=== PATIENT | female | born 1990 | race Caucasian/White ===

== ENCOUNTER 2018-02-17 06:29 | Emergency (ER) | payer MEDICAID, OTHER ==
[~2018-02-17] VITALS: Ht 160 cm; Wt 77.0 kg
[2018-02-17 06:56] LABS: URINE HCG NEGATIVE (NEG)
[2018-02-17 07:01] LABS: GLUCOSE, URINE Negative (Neg); KETONES,URINE Negative (Neg); LEUKOCYTE ESTERASE ,URINE Large (Neg); NITRITES, URINE Negative (Neg); OCCULT BLOOD,URINE Large (Neg); PH,URINE 6.5 (4.8-8.0); PROTEIN,URINE Negative (Neg); UA COLLECTION TYPE CLN CATCH MIDSTREAM; UROBILINOGEN,URINE 0.2 E.U/dL (0.2-1.0)
[2018-02-17 07:02] LABS: CLARITY,URINE SLIGHTLY CLOUDY (Clear); COLOR,URINE STRAW (Yellow)
[2018-02-17] MEDS ORDERED: phenazopyridine 100mg tablet PO ONE (07:05)
[2018-02-17] MEDS ORDERED: acetaminophen 325mg tablet PO ONE (07:05)
[2018-02-17 07:08] LABS: BACTERIA,URINE 1+ /HPF (Neg); MUCUS STRANDS NONE SEEN /LPF (Neg); SQUAMOUS EPITHELIAL CELL,UR FEW /LPF (FEW); WBC CLUMPS,URINE MODERATE /HPF (NEGATIVE); WBC,URINE 50-100 /HPF (0-4)
[2018-02-17] MEDS ORDERED: CefTRIAXone 1000mg IM Kit (w/lidocaine diluent) IM ONE (07:20)
[2018-02-17] MEDS ORDERED: ciprofloxacin 250mg tablet PO ONE (07:20)
[2018-02-17] MEDS ORDERED: PHEN-716 PO (07:23)
[2018-02-17] MEDS ORDERED: CIPR-259 PO (07:23)
[2018-02-17 08:05] VITALS: BP 134/79
== END 2018-02-17 08:06 | disposition home or self-care (01) ==
LOC: ER 06:30
DX: N39.0 Urinary tract infection, site not specified (principal); J45.909 Unspecified asthma, uncomplicated
CPT/HCPCS: 81001; 81025; 87088; 96372; 99285; J0696; 87077; 87186

== ENCOUNTER 2018-11-16 17:49 | Emergency (ER) | payer MEDICAID ==
[~2018-11-16] VITALS: Ht 157.5 cm; Wt 88.6 kg
[~2018-11-16 17:49] MED LIST: METH500T PO; PHEN-716 PO
[2018-11-16 18:29] VITALS: BP 122/78
--- NOTE | 2018-11-16 19:26 | NUR ---
pt amb with slow steady gait to hallway
[2018-11-16] MEDS ORDERED: CYCL-1 PO (19:29)
== END 2018-11-16 19:41 | disposition home or self-care (01) ==
LOC: ER 17:50
DX: S39.012A Strain of muscle, fascia and tendon of lower back, initial encounter (principal); J45.909 Unspecified asthma, uncomplicated; M19.90 Unspecified osteoarthritis, unspecified site; Z79.899 Other long term (current) drug therapy; X58.XXXA Exposure to other specified factors, initial encounter; Y93.89 Activity, other specified; Y92.89 Other specified places as the place of occurrence of the external cause; Y99.8 Other external cause status
CPT/HCPCS: 99283

== ENCOUNTER 2019-02-13 09:46 | Emergency (ER) | payer MEDICAID ==
[~2019-02-13] VITALS: Ht 160 cm; Wt 88.0 kg
[~2019-02-13 09:46] MED LIST changes: +CYCL-1 PO
[2019-02-13] MEDS ORDERED: normal saline 1000ML IV soln IVB ONE (10:40)
[2019-02-13] MEDS ORDERED: metoclopramide 5 mg/ml inj IV ONE (10:40)
[2019-02-13] MEDS ORDERED: LORazepam 2 mg/ml vial IV ONE (10:40)
[2019-02-13] MEDS ORDERED: dexamethasone sod phosphate 10mg/ml inj IV STA (10:40)
[2019-02-13] MEDS ORDERED: ketorolac trometh. 30mg/ml inj. IV ONE (11:35)
[2019-02-13 12:07] VITALS: BP 110/67
== END 2019-02-13 12:08 | disposition home or self-care (01) ==
LOC: ER 09:46 → EDBD 09:46 → ER 12:08
DX: G43.919 Migraine, unspecified, intractable, without status migrainosus (principal); J45.909 Unspecified asthma, uncomplicated; M19.90 Unspecified osteoarthritis, unspecified site
CPT/HCPCS: 70450; 96361; 96374; 96375; 99284; J1100; J1885; J2060; J2765; J7030

== ENCOUNTER 2020-01-06 10:45 | Emergency (ER) | payer MEDICAID ==
[~2020-01-06] VITALS: Ht 157.5 cm; Wt 88.0 kg
[2020-01-06 11:04] VITALS: BP 137/90
[2020-01-06] MEDS ORDERED: ERYT1OIN6 LEFTEYE (11:19)
== END 2020-01-06 11:38 | disposition home or self-care (01) ==
LOC: ER 10:45
DX: H10.9 Unspecified conjunctivitis (principal); J45.909 Unspecified asthma, uncomplicated; M19.90 Unspecified osteoarthritis, unspecified site
CPT/HCPCS: 99283

== ENCOUNTER 2020-04-21 17:38 | Emergency (ER) | payer MEDICAID ==
[~2020-04-21] VITALS: Ht 157.5 cm; Wt 100.0 kg
[2020-04-21] MEDS ORDERED: IBUP-1984 PO (18:24)
[2020-04-21] MEDS ORDERED: ondansetron 4mg rapidly disintigrating tab PO ONE (18:25)
[2020-04-21] MEDS ORDERED: HYDROcodone/acetaminophen 5mg/325mg tablet PO ONE (18:25)
[2020-04-21 18:28] VITALS: BP 133/80
--- NOTE | 2020-04-21 18:42 | NUR ---
blake guevara talkling with pt about dc. reports no fracture. pt to be given boot and crutches. given norco and zofran prior to dc. pts mother to pick her up.
== END 2020-04-21 18:48 | disposition home or self-care (01) ==
LOC: ER 17:38
DX: S93.491A Sprain of other ligament of right ankle, initial encounter (principal); J45.909 Unspecified asthma, uncomplicated; M19.90 Unspecified osteoarthritis, unspecified site; Z72.89 Other problems related to lifestyle; Z91.040 Latex allergy status; Z79.899 Other long term (current) drug therapy; X50.1XXA Overexertion from prolonged static or awkward postures, initial encounter; Y93.89 Activity, other specified; Y92.89 Other specified places as the place of occurrence of the external cause; Y99.8 Other external cause status
CPT/HCPCS: 73610; 73630; 99284

== ENCOUNTER 2021-06-23 14:05 | Emergency (ER) | payer MEDICAID ==
[~2021-06-23] VITALS: Ht 160 cm; Wt 82.0 kg
[2021-06-23 14:10] VITALS: BP 139/85
[2021-06-23 14:32] LABS: CLARITY,URINE CLOUDY (Clear); COLOR,URINE YELLOW (Yellow); GLUCOSE, URINE NEGATIVE (Neg); KETONES,URINE NEGATIVE (Neg); LEUKOCYTE ESTERASE ,URINE TRACE (Neg); NITRITES, URINE NEGATIVE (Neg); OCCULT BLOOD,URINE NEGATIVE (Neg); PROTEIN,URINE NEGATIVE (Neg)
[2021-06-23 14:36] LABS: URINE HCG NEGATIVE (NEG)
[2021-06-23 14:39] LABS: UA COLLECTION TYPE CLN CATCH MIDSTREAM
[2021-06-23 15:01] LABS: MUCUS STRANDS MODERATE /LPF (Neg); SQUAMOUS EPITHELIAL CELL,UR MODERATE /LPF (FEW)
[2021-06-23 15:02] LABS: BACTERIA,URINE 1+ /HPF (Neg); RBC,URINE 0-2 /HPF (0-2)
[2021-06-23 15:02] LABS: BASOPHILS % (AUTO) 0.4 % (0-1); EOSINOPHILS # (AUTO) 0.2 X10'3 (0-0.9); EOSINOPHILS % (AUTO) 1.7 % (0-6); HEMATOCRIT 44.3 % (35.0-45.0); HEMOGLOBIN 14.9 g/dl (12.0-16.0); LYMPHOCYTES # (AUTO) 2.3 X10'3 (1.1-4.8); LYMPHOCYTES % (AUTO) 22.9 % (21-51); MEAN CORPUSCULAR HEMOGLOBIN 32.6 PG (27.0-31.0); MEAN CORPUSCULAR HGB CONC 33.6 g/dL (33.0-36.5); MEAN CORPUSCULAR VOLUME 96.9 FL (78-98); MEAN PLATELET VOLUME 7.6 FL (7.4-10.4); MONOCYTES # (AUTO) 0.6 X10'3 (0-0.9); MONOCYTES % (AUTO) 5.9 % (2-12); NEUTROPHILS # (AUTO) 6.9 X10'3 (1.8-7.7); NEUTROPHILS % (AUTO) 69.1 % (42-75); PLATELET COUNT 309 X10'3 (140-440); RED BLOOD COUNT 4.57 X10'6 (4.20-5.60); RED CELL DISTRIBUTION WIDTH 13.4 % (11.5-14.5)
[2021-06-23 15:08] LABS: ALANINE AMINOTRANSFERASE 42 U/L (12-78); ALBUMIN 3.8 G/DL (3.4-5.0); ALBUMIN/GLOBULIN RATIO 0.9 (1.1-1.5); ALKALINE PHOSPHATASE 143 IU/L (46-116); ANION GAP 5 (8-16); ASPARTATE AMINO TRANSFERASE 20 U/L (10-37); BILIRUBIN,TOTAL 0.7 MG/DL (0.1-1.0); BLOOD UREA NITROGEN 16 MG/DL (7-18); BUN/CREATININE RATIO 17.6 (6.6-38.0); CALCIUM 8.8 MG/DL (8.5-10.1); CHLORIDE 107 MMOL/L (99-107); CREATININE 0.91 MG/DL (0.40-0.90); GLUCOSE 93 MG/DL (70-104); LIPASE 62 U/L (73-393); POTASSIUM 4.1 MMOL/L (3.5-5.1); SODIUM 141 MMOL/L (135-145); eGFR 72 ML/MIN
[2021-06-23] MEDS ORDERED: ONDA4TAB6 PO (18:19)
[2021-06-23] MEDS ORDERED: PANT20TA18 PO (18:19)
[2021-06-23] MEDS ORDERED: ondansetron 4mg rapidly disintigrating tab PO ONE (18:20)
[2021-06-23] MEDS ORDERED: dicyclomine 10 MG capsule PO ONE (18:20)
[2021-06-23] MEDS ORDERED: pantoprazole 40mg Tablet.DR PO ONE (19:15)
[2021-06-24] MEDS ORDERED: pantoprazole 40mg Tablet.DR PO SCH (07:30)
== END 2021-06-23 19:21 | disposition home or self-care (01) ==
LOC: ER 14:05
DX: R10.10 Upper abdominal pain, unspecified (principal); R11.2 Nausea with vomiting, unspecified; R19.7 Diarrhea, unspecified; G43.909 Migraine, unspecified, not intractable, without status migrainosus; J45.909 Unspecified asthma, uncomplicated; M19.90 Unspecified osteoarthritis, unspecified site; Z72.89 Other problems related to lifestyle; Z91.040 Latex allergy status; Z79.899 Other long term (current) drug therapy
CPT/HCPCS: 36415; 76700; 80053; 81001; 81025; 83690; 85025; 87088; 99284

== ENCOUNTER 2021-07-13 14:08 | Emergency (ER) | payer MEDICAID ==
[~2021-07-13] VITALS: Ht 160 cm; Wt 81.8 kg
[~2021-07-13 14:08] MED LIST changes: +ONDA4TAB6 PO; +PANT20TA18 PO
[2021-07-13 14:43] VITALS: BP 111/84
[2021-07-13] MEDS ORDERED: DEXA6TAB6 PO (14:52)
[2021-07-13] MEDS ORDERED: BUDE0.5A11 NEB (14:52)
[2021-07-13] MEDS ORDERED: IVER3TAB2 PO (15:47)
== END 2021-07-13 16:50 | disposition home or self-care (01) ==
LOC: ER 14:09
DX: U07.1 COVID-19 (principal); R19.7 Diarrhea, unspecified; R50.9 Fever, unspecified; R06.02 Shortness of breath; R05 Cough; R11.2 Nausea with vomiting, unspecified; G43.909 Migraine, unspecified, not intractable, without status migrainosus; J45.909 Unspecified asthma, uncomplicated; M19.90 Unspecified osteoarthritis, unspecified site; Z72.89 Other problems related to lifestyle; Z91.040 Latex allergy status; Z79.899 Other long term (current) drug therapy
CPT/HCPCS: 71045; 99283

== ENCOUNTER 2024-04-05 08:26 | Emergency (ER) | payer MEDICAID ==
[~2024-04-05] VITALS: Ht 160 cm; Wt 89.0 kg
[~2024-04-05 08:26] MED LIST changes: +DEXA6TAB6 PO; +IVER3TAB2 PO
[2024-04-05 08:28] VITALS: BP 187/99; PULSE 75; RESP 16; TEMP 98.6; O2SAT 99
== END 2024-04-05 09:55 | disposition home or self-care (01) ==
LOC: ER 08:27
DX: S93.402A Sprain of unspecified ligament of left ankle, initial encounter (principal); G43.909 Migraine, unspecified, not intractable, without status migrainosus; J45.909 Unspecified asthma, uncomplicated; M19.90 Unspecified osteoarthritis, unspecified site; Z91.040 Latex allergy status; Z79.899 Other long term (current) drug therapy; X50.1XXA Overexertion from prolonged static or awkward postures, initial encounter; Y93.89 Activity, other specified; Y92.89 Other specified places as the place of occurrence of the external cause; Y99.8 Other external cause status
CPT/HCPCS: 73610; 99283; L4360

== ENCOUNTER 2025-03-16 18:33 | Emergency (ER) | payer MEDICAID ==
[~2025-03-16] VITALS: Ht 160 cm; Wt 82.3 kg
[2025-03-16] MEDS ORDERED: METH-798 PO (21:02)
[2025-03-16] MEDS ORDERED: PRED20TA PO (21:02)
[2025-03-16] MEDS: cyclobenzaprine 10mg tablet PO ONE (21:29)
[2025-03-16] MEDS: dexamethasone sod phosphate 10mg/ml inj IM ONE (21:30)
[2025-03-16] MEDS: ketorolac trometh 15mg/ml vial 15 MG/ML ML IM ONE (21:31)
[2025-03-16 21:43] VITALS: BP 155/97; PULSE 70; RESP 18; TEMP 98.6; O2SAT 99
== END 2025-03-16 21:44 | disposition home or self-care (01) ==
LOC: ER 18:34
DX: M54.12 Radiculopathy, cervical region (principal); J45.909 Unspecified asthma, uncomplicated; M19.90 Unspecified osteoarthritis, unspecified site; G43.909 Migraine, unspecified, not intractable, without status migrainosus; Z88.8 Allergy status to other drugs, medicaments and biological substances
CPT/HCPCS: 93005; 96372; 99284; J1100; J1885